=== PATIENT | male | born 1995 | race Hispanic/Latino ===

== ENCOUNTER 2017-08-14 02:02 | Emergency (ER) | payer OTHER ==
[2017-08-14 02:47] LABS: Urine Drugs of Abuse Note Disclamer
[2017-08-14 02:52] LABS: Basophils % (Auto) 0.8 % (0.0-1.8); Eosinophils % (Auto) 0.3 % (0.0-4.3); Hematocrit 48.9 % (35.5-45.6); Hemoglobin 16.8 gm/dl (11.8-15.2); Mean Corpuscular HGB Conc 35 % (32-34); Mean Corpuscular Hemoglobin 31 pg (28-32); Mean Corpuscular Volume 91 fl (84-94); Platelet Count 289 K/mm3 (140-440); Red Cell Distribution Width 13.1 % (13.2-15.2); White Blood Count 5.1 K/mm3 (4.5-11.0)
[2017-08-14 03:07] LABS: Anion Gap 22 mmol/L; BUN/Creatinine Ratio 10; Blood Urea Nitrogen 8 mg/dL (9-20); Calcium 9.9 mg/dL (8.4-10.2); Carbon Dioxide 22 mmol/L (22-30); Chloride 95.5 mmol/L (98-107); Glucose 172 mg/dL (75-100); Potassium 3.9 mmol/L (3.6-5.0); Sodium 136 mmol/L (137-145)
[2017-08-14 03:09] LABS: Bilirubin,Urine NEG (Negative); Blood,Urine NEG (Negative); Ketones,Urine NEG (Negative); Leukocyte Esterase,Urine NEG (Negative); Mucus,Urine 3+ /HPF; Nitrite,Urine NEG (Negative)
[2017-08-14] MEDS ORDERED: NACL 0.9% 1000 ML 1,000 ML IV ONE ×2 (03:11→05:16)
[2017-08-14] MEDS ORDERED: ATIVAN IV ONE ×2 (03:11→05:16)
--- NOTE | 2017-08-14 03:49 | XRay Report ---
FINAL REPORT EXAM: XR CHEST 1V AP HISTORY: chest pain TECHNIQUE: An AP view of the chest was submitted. FINDINGS: The heart size and mediastinum appear normal. The lungs are clear. There are EKG leads overlying the chest wall. Pleural fluid is not seen. The bones and soft tissues appear normal. IMPRESSION: Normal chest.
--- NOTE | 2017-08-14 05:22 | Emergency Department Report ---
ED Chest Pain HPI - General Chief Complaint: Chest Pain Stated Complaint: HEART HURTS Time Seen by Provider: 08/14/17 03:09 Source: patient Mode of arrival: Ambulatory Limitations: No Limitations - History of Present Illness Initial Comments: 22 yo male who comes in today due to chest pain. He states that he used meth on one occasion prior to arrival. Upon further inquiry, he admits to using weed and meth in the past. Chest pain described as left-sided, aching, 8/10, with no radiation, nausea, vomiting, or diaphoresis. Denies any pertinent past medical history. -: During the night (prior to arrival ) Pain Location: left chest Pain Radiation: none Severity scale (0 -10): 7 Quality: aching, sharp Improves With: nothing Worsens With: movement Context: other (Recent drug use ) Treatments Prior to Arrival: none Aspirin use within the Past 7 Days: (0) No - Related Data On Oral Contraceptives: No Home Medications Medication Instructions Recorded Confirmed Last Taken No Known Home Medications [No 08/14/17 08/14/17 Unknown Reported Home Medications] Allergies Allergy/AdvReac Type Severity Reaction Status Date / Time No Known Allergies Allergy Unverified 08/14/17 02:25 Heart Score - HEART Score History: Slightly suspicious EKG: Non-specific (sinus tachycardia-133) Age: < 45 Risk factors: No known risk factors Troponin: < normal limit HEART Score: 1 ED Review of Systems ROS: Stated complaint: HEART HURTS Other details as noted in HPI Constitutional: denies: chills, fever Eyes: denies: eye pain, eye discharge, vision change ENT: denies: ear pain, throat pain Respiratory: denies: cough, shortness of breath, wheezing Cardiovascular: as per HPI Endocrine: no symptoms reported Gastrointestinal: denies: abdominal pain, nausea, diarrhea Genitourinary: denies: urgency, dysuria Musculoskeletal: denies: back pain, joint swelling, arthralgia Skin: denies: rash, lesions Neurological: denies: headache, weakness, paresthesias Psychiatric: denies: anxiety, depression Hematological/Lymphatic: denies: easy bleeding, easy bruising ED Past Medical Hx - Past Medical History Previous Medical History?: No - Surgical History Past Surgical History?: No - Social History Smoking Status: Current Every Day Smoker Substance Use Type: Cocaine, Methamphetamines - Medications Home Medications: Home Medications Medication Instructions Recorded Confirmed Last Taken Type No Known Home Medications [No 08/14/17 08/14/17 Unknown History Reported Home Medications] ED Physical Exam - General Limitations: No Limitations General appearance: alert, in no apparent distress, anxious - Head Head exam: Present: atraumatic, normocephalic - Eye Eye exam: Present: normal appearance - ENT ENT exam: Present: mucous membranes moist - Neck Neck exam: Present: normal inspection - Respiratory Respiratory exam: Present: normal lung sounds bilaterally. Absent: respiratory distress - Cardiovascular Cardiovascular Exam: Present: tachycardia - GI/Abdominal GI/Abdominal exam: Present: soft, normal bowel sounds - Extremities Exam Extremities exam: Present: normal inspection - Back Exam Back exam: Present: normal inspection - Neurological Exam Neurological exam: Present: alert, oriented X3 - Psychiatric Psychiatric exam: Present: anxious - Skin Skin exam: Present: warm, dry, intact, normal color. Absent: rash ED Course Vital Signs 08/14/17 08/14/17 08/14/17 02:19 02:42 02:45 Temperature 98 F Pulse Rate 133 H 122 H 135 H Respiratory 20 13 12 Rate Blood Pressure 150/81 O2 Sat by Pulse 100 100 100 Oximetry 08/14/17 08/14/17 08/14/17 02:46 03:00 03:15 Temperature Pulse Rate 114 H 124 H Respiratory 14 10 L 11 L Rate Blood Pressure 146/94 146/94 O2 Sat by Pulse 100 100 100 Oximetry 08/14/17 08/14/17 08/14/17 03:30 03:45 04:00 Temperature Pulse Rate 162 H 115 H 116 H Respiratory 12 12 13 Rate Blood Pressure 148/88 148/88 137/91 O2 Sat by Pulse 99 100 100 Oximetry 08/14/17 08/14/17 08/14/17 04:15 04:30 04:45 Temperature Pulse Rate 124 H 123 H 129 H Respiratory 12 13 8 L Rate Blood Pressure 137/91 138/82 138/82 O2 Sat by Pulse 100 100 100 Oximetry 08/14/17 05:00 Temperature Pulse Rate 125 H Respiratory 9 L Rate Blood Pressure 127/82 O2 Sat by Pulse 100 Oximetry INDIO score - Indio Score Age > 65: (0) No Aspirin use within the Past 7 Days: (0) No 3 or more CAD Risk Factors: (0) No 2 or more Angina events in past 24 hrs: (0) No Known CAD with more than 50% Stenosis: (0) No Elevated Cardiac Markers: (0) No ST Deviation Greater than 0.5mm: (0) No INDIO Score: 0 ED Medical Decision Making - Lab Data Result diagrams: 08/14/17 02:32 08/14/17 02:32 Critical care attestation.: If time is entered above; I have spent that time in minutes in the direct care of this critically ill patient, excluding procedure time. ED Disposition Clinical Impression: Drug use, Methamphetamine use Disposition: DC- TO HOME OR SELFCARE Is pt being admited?: No Does the pt Need Aspirin: No Condition: Stable Instructions: Methamphetamine Abuse (ED), Chest Pain (ED) Additional Instructions: Please refrain from the use of recreational drugs. Return to the ED for worsening chest pain, shortness of breath, diaphoresis, nausea, vomiting, or back pain. Referrals: PRIMARY CARE, [Primary Care Provider] - 3-5 Days Time of Disposition: 05:26
[2017-08-14 06:43] VITALS: BP 134/86
== END 2017-08-14 06:43 | disposition home or self-care (01) ==
LOC: ED 02:02
DX: F15.90 Other stimulant use, unspecified, uncomplicated (principal); F17.200 Nicotine dependence, unspecified, uncomplicated; F14.10 Cocaine abuse, uncomplicated
CPT/HCPCS: 36415; 71010; 80048; 80307; 81001; 84484; 85025; 93005; 93010; 96361; 96374; 96376; 99284; G0480; J2060; J7030; 80320

== ENCOUNTER 2017-08-15 04:01 | Emergency (ER) | payer SELFPAY ==
[2017-08-15 05:32] VITALS: BP 121/85
[2017-08-15 06:19] LABS: Basophils % (Auto) 0.5 % (0.0-1.8); Eosinophils % (Auto) 0.4 % (0.0-4.3); Hematocrit 48.7 % (35.5-45.6); Hemoglobin 16.3 gm/dl (11.8-15.2); Mean Corpuscular HGB Conc 34 % (32-34); Mean Corpuscular Hemoglobin 31 pg (28-32); Mean Corpuscular Volume 91 fl (84-94); Platelet Count 278 K/mm3 (140-440); Red Blood Count 5.34 M/mm3 (3.65-5.03); Red Cell Distribution Width 13.1 % (13.2-15.2); White Blood Count 5.5 K/mm3 (4.5-11.0)
[2017-08-15 06:58] LABS: Anion Gap 21 mmol/L; BUN/Creatinine Ratio 12; Blood Urea Nitrogen 6 mg/dL (9-20); Calcium 9.4 mg/dL (8.4-10.2); Carbon Dioxide 22 mmol/L (22-30); Chloride 101.5 mmol/L (98-107); Glucose 87 mg/dL (75-100); Potassium 4.2 mmol/L (3.6-5.0); Sodium 140 mmol/L (137-145)
== END 2017-08-15 11:00 | disposition left against medical advice (07) ==
LOC: ED 04:01
DX: R07.89 Other chest pain (principal); Z53.21 Procedure and treatment not carried out due to patient leaving prior to being seen by health care provider
CPT/HCPCS: 36415; 80048; 84484; 85025; 93005; 93010

== ENCOUNTER 2017-08-16 05:01 | Emergency (ER) | payer OTHER ==
[2017-08-16 06:15] VITALS: BP 127/82
[2017-08-16 11:36] LABS: Basophils % (Auto) 1.4 % (0.0-1.8); Eosinophils % (Auto) 0.9 % (0.0-4.3); Hematocrit 48.2 % (35.5-45.6); Hemoglobin 16.1 gm/dl (11.8-15.2); Mean Corpuscular HGB Conc 33 % (32-34); Mean Corpuscular Hemoglobin 30 pg (28-32); Mean Corpuscular Volume 91 fl (84-94); Platelet Count 282 K/mm3 (140-440); Red Cell Distribution Width 13.1 % (13.2-15.2); White Blood Count 4.8 K/mm3 (4.5-11.0)
[2017-08-16 11:54] LABS: Anion Gap 19 mmol/L; BUN/Creatinine Ratio 16; Blood Urea Nitrogen 8 mg/dL (9-20); Calcium 9.1 mg/dL (8.4-10.2); Carbon Dioxide 25 mmol/L (22-30); Chloride 99.4 mmol/L (98-107); Glucose 96 mg/dL (75-100); Potassium 3.7 mmol/L (3.6-5.0); Sodium 140 mmol/L (137-145)
[2017-08-16 11:56] LABS: Creatine Kinase MB 1.1 ng/mL (0.0-4.0)
== END 2017-08-16 13:35 | disposition left against medical advice (07) ==
LOC: ED 05:01
DX: R07.9 Chest pain, unspecified (principal); Z53.21 Procedure and treatment not carried out due to patient leaving prior to being seen by health care provider
CPT/HCPCS: 36415; 80048; 82550; 82553; 84439; 84443; 84484; 85025; 85379; 93005; 93010; G0480; 80320

== ENCOUNTER 2017-08-24 07:15 | Emergency (ER) | payer SELFPAY ==
[2017-08-24 08:40] VITALS: BP 117/71
[2017-08-24] MEDS ORDERED: TYLENOL PO ONE (09:07)
[2017-08-24] MEDS ORDERED: TORADOL IM ONE (09:07)
--- NOTE | 2017-08-24 09:08 | Emergency Department Report ---
ED Chest Pain HPI - General Chief Complaint: Chest Pain Stated Complaint: CHEST PAIN Time Seen by Provider: 08/24/17 08:59 Source: patient, RN notes reviewed, old records reviewed Mode of arrival: Ambulatory Limitations: No Limitations - History of Present Illness Initial Comments: This is a 22-year-old male who was previously unknown to this provider. Patient presents to the ER with left-sided chest pain. It is intermittently associated with left scapular pain. The pain has been present for about a week. It is intermittent. The pain does not radiate to the back, arms or neck. There is no vomiting, diaphoresis, shortness of breath or syncope. Patient reports symptoms started after he smoked an unknown drug. He is not homicidal or suicidal, he is not having hallucinations, he is very anxious, her pulmonary and blister DVT risk factors. Patient seen in this ER multiple times for similar complaints over the past week, troponins have been negative multiple times, patient had a negative d-dimer, and also had a negative x-ray the chest. The patient's symptoms do not have exacerbating or relieving factors, and do not radiate anywhere. MD Complaint: chest pain -: Gradual, days(s) Onset: during rest Pain Location: left chest Severity scale (0 -10): 0 Quality: aching Consistency: intermittent Improves With: nothing Worsens With: nothing re: denies: nausea, vomting, diaphoresis, dyspnea, sense of impending doom Treatments Prior to Arrival: none Aspirin use within the Past 7 Days: (0) No - Related Data On Oral Contraceptives: No Previous Rx's Medication Instructions Recorded Last Taken Type Acetaminophen [Tylenol Arthritis] 650 mg PO Q6HR PRN #30 tablet.er 08/24/17 Unknown Rx Ibuprofen [Motrin] 600 mg PO Q8H PRN #30 tablet 08/24/17 Unknown Rx Allergies Allergy/AdvReac Type Severity Reaction Status Date / Time No Known Allergies Allergy Verified 08/24/17 07:24 Heart Score - HEART Score History: Slightly suspicious EKG: Non-specific Age: < 45 Risk factors: No known risk factors Troponin: < normal limit HEART Score: 1 - Critical Actions Critical Actions: 0-3 pts:0.9-1.7%risk of adverse cardiac event.Candidate for discharge ED Review of Systems ROS: Stated complaint: CHEST PAIN Other details as noted in HPI Constitutional: denies: fever Eyes: denies: vision change ENT: denies: epistaxis Respiratory: denies: wheezing Cardiovascular: chest pain Gastrointestinal: denies: vomiting Genitourinary: as per HPI Musculoskeletal: as per HPI Skin: as per HPI Neurological: as per HPI Psychiatric: anxiety. denies: suicidal thoughts ED Past Medical Hx - Past Medical History Previous Medical History?: No - Surgical History Past Surgical History?: No - Social History Smoking Status: Current Some Day Smoker Substance Use Type: Alcohol - Medications Home Medications: Home Medications Medication Instructions Recorded Confirmed Last Taken Type Acetaminophen [Tylenol Arthritis] 650 mg PO Q6HR PRN #30 tablet.er 08/24/17 Unknown Rx Ibuprofen [Motrin] 600 mg PO Q8H PRN #30 tablet 08/24/17 Unknown Rx ED Physical Exam - General Limitations: No Limitations General appearance: alert, in no apparent distress - Head Head exam: Present: atraumatic, normocephalic - Eye Eye exam: Present: normal appearance, EOMI. Absent: nystagmus - ENT ENT exam: Present: normal exam, normal orophraynx, mucous membranes moist, normal external ear exam - Neck Neck exam: Present: normal inspection, full ROM - Respiratory Respiratory exam: Present: normal lung sounds bilaterally. Absent: respiratory distress, chest wall tenderness - Cardiovascular Cardiovascular Exam: Present: regular rate, normal rhythm, normal heart sounds. Absent: systolic murmur, diastolic murmur, rubs, gallop - GI/Abdominal GI/Abdominal exam: Present: soft, normal bowel sounds. Absent: distended, tenderness, guarding, rebound, rigid, pulsatile mass - Rectal Rectal exam: Present: deferred - Extremities Exam Extremities exam: Present: normal inspection, full ROM, normal capillary refill. Absent: pedal edema, joint swelling, calf tenderness - Back Exam Back exam: Present: normal inspection, full ROM. Absent: tenderness, CVA tenderness (R), paraspinal tenderness, vertebral tenderness - Neurological Exam Neurological exam: Present: alert, oriented X3, CN II-XII intact, normal gait, other (Extraocular movements intact. Tongue midline. No facial droop. Facial sensation intact to light touch in the V1, V2, V3 distribution bilaterally. 5 and 5 strength in 4 extremities.. Sensation is intact to light touch in 4 extremities.). Absent: motor sensory deficit - Psychiatric Psychiatric exam: Present: anxious - Skin Skin exam: Present: warm, dry, intact, normal color. Absent: rash ED Course Vital Signs 08/24/17 08/24/17 08/24/17 07:24 08:39 08:40 Temperature 98 F 98.4 F Pulse Rate 86 75 Respiratory 18 12 12 Rate Blood Pressure 121/77 Blood Pressure 117/71 [Right] O2 Sat by Pulse 96 98 98 Oximetry INDIO score - Indio Score Age > 65: (0) No Aspirin use within the Past 7 Days: (0) No 3 or more CAD Risk Factors: (0) No 2 or more Angina events in past 24 hrs: (0) No Known CAD with more than 50% Stenosis: (0) No Elevated Cardiac Markers: (0) No ST Deviation Greater than 0.5mm: (0) No INDIO Score: 0 ED Medical Decision Making - Lab Data Result diagrams: 08/24/17 09:11 Vital Signs 08/24/17 08/24/17 08/24/17 07:24 08:39 08:40 Temperature 98 F 98.4 F Pulse Rate 86 75 Respiratory 18 12 12 Rate Blood Pressure 121/77 Blood Pressure 117/71 [Right] O2 Sat by Pulse 96 98 98 Oximetry - EKG Data -: EKG Interpreted by Ga - EKG Data 08/24/17 09:42 Normal sinus, 75 bpm, right axis deviation, left anterior fascicular block, abnormal EKG, unchanged from prior, not morphologically consistent with ST elevation myocardial infarction, - Radiology Data Radiology results: report reviewed, image reviewed Recent x-ray of the chest, read by radiology and myself as negative for acute disease - Medical Decision Making Differential diagnosis, including without limited to: Acute coronary syndrome, pneumonia, costochondritis, anxiety, conversion disorder, myositis, pericarditis Assessment and plan: 22-year-old male with atypical chest pain that has been present for 1 week, has had multiple negative troponins, negative d-dimer, EKG abnormal today but morphologically unchanged from prior, recent x-ray of the chest was interpreted as negative. Historically, patient low risk by INDIO score , heart score, Wells criteria, and is per negative Patient given Toradol and Tylenol for pain, he was sleeping initially during my initial evaluation and is sleeping now. Patient is clinically sober at this time, he is advised to avoid consumption of illegal drugs, patient at low risk for major adverse cardiac event, and he can follow up with an outpatient neurologist for his incidental abnormal EKG findings. Given recent negative chest x-ray, lack of hypoxia, lack of focal pulmonary findings, I see no indication to repeat patient's x-ray of the chest at this time. Critical care attestation.: If time is entered above; I have spent that time in minutes in the direct care of this critically ill patient, excluding procedure time. ED Disposition Clinical Impression: Chest pain Disposition: DC-01 TO HOME OR SELFCARE Is pt being admited?: No Does the pt Need Aspirin: No Condition: Good Instructions: Chest Pain (ED) Additional Instructions: Discontinue consumption of amphetamines, marijuana, illegal drugs. Discontinue consumption of trauma and all. This medication is not necessary at this time. Take the prescribed acetaminophen and ibuprofen as needed/directed. Follow up with a neurologist within the next 7-10 days for chest pain and abnormal EKG findings as we discussed. Return to the ER right away with new pain, worsening pain, migration of pain, fevers, chills, lethargy, irritability, projectile vomiting, change in mental status, confusion, inability to tolerate liquid feeds. Prescriptions: Acetaminophen [Tylenol Arthritis] 650 mg PO Q6HR PRN #30 tablet.er PRN Reason: Pain Ibuprofen [Motrin] 600 mg PO Q8H PRN #30 tablet PRN Reason: Pain Referrals: PRIMARY CARE, [Primary Care Provider] - 3-5 Days [facility] [Provider Group] - 3-5 Days [facility] [Provider Group] - 3-5 Days
[2017-08-24 09:53] LABS: Anion Gap 18 mmol/L; BUN/Creatinine Ratio 12; Blood Urea Nitrogen 7 mg/dL (9-20); Calcium 9.3 mg/dL (8.4-10.2); Carbon Dioxide 26 mmol/L (22-30); Chloride 99.1 mmol/L (98-107); Creatine Kinase 44 units/L (55-170); Glucose 111 mg/dL (75-100); Potassium 3.8 mmol/L (3.6-5.0); Sodium 139 mmol/L (137-145)
== END 2017-08-24 10:30 | disposition home or self-care (01) ==
LOC: ED 07:15
DX: R07.89 Other chest pain (principal); F17.200 Nicotine dependence, unspecified, uncomplicated
CPT/HCPCS: 36415; 80048; 82550; 84484; 93005; 93010; 96372; 99283; J1885

== ENCOUNTER 2017-08-25 16:59 | Emergency (ER) | payer OTHER ==
[2017-08-25 17:58] LABS: Basophils % (Auto) 0.5 % (0.0-1.8); Eosinophils % (Auto) 0.4 % (0.0-4.3); Hematocrit 47.2 % (35.5-45.6); Hemoglobin 15.8 gm/dl (11.8-15.2); Mean Corpuscular HGB Conc 33 % (32-34); Mean Corpuscular Hemoglobin 31 pg (28-32); Mean Corpuscular Volume 91 fl (84-94); Platelet Count 288 K/mm3 (140-440); Red Blood Count 5.18 M/mm3 (3.65-5.03); Red Cell Distribution Width 13.3 % (13.2-15.2); White Blood Count 8.5 K/mm3 (4.5-11.0)
[2017-08-25 18:27] LABS: Anion Gap 17 mmol/L; BUN/Creatinine Ratio 17; Blood Urea Nitrogen 10 mg/dL (9-20); Calcium 9.3 mg/dL (8.4-10.2); Carbon Dioxide 28 mmol/L (22-30); Chloride 98.7 mmol/L (98-107); Glucose 99 mg/dL (75-100); Potassium 3.7 mmol/L (3.6-5.0); Sodium 140 mmol/L (137-145)
[2017-08-26 00:08] LABS: Urine Drugs of Abuse Note Disclamer
--- NOTE | 2017-08-26 00:18 | Emergency Department Report ---
HPI - General Chief Complaint: Chest Pain Time Seen by Provider: 08/25/17 23:39 - HPI HPI: Room 19 The patient is a 22-year-old male presenting with a chief complaint dizziness and chest pain. The patient states he smoked some methamphetamines approximately 9 days ago and since then has had intermittent left-sided chest pain described as sharp in nature. Patient denies shortness of breath or diaphoresis but this to an episode of nausea and vomiting after eating yesterday. Patient is adamant he has not used any more meth since his first use 9 days ago. The patient currently has his pain score 6-7/10 Location: Chest Duration: Intermittent 9 days Quality: Sharp Severity: [See above] Modifying factors: [see above] Context: [see above] Mode of transportation: [not driving] ED Past Medical Hx - Past Medical History Previous Medical History?: No - Surgical History Past Surgical History?: No - Family History Family history: no significant - Social History Smoking Status: Current Some Day Smoker Substance Use Type: Alcohol (occasional), Methamphetamines - Medications Home Medications: Home Medications Medication Instructions Recorded Confirmed Last Taken Type Acetaminophen [Tylenol Arthritis] 650 mg PO Q6HR PRN #30 tablet.er 08/24/17 Unknown Rx Ibuprofen [Motrin] 600 mg PO Q8H PRN #30 tablet 08/24/17 Unknown Rx Ibuprofen [Motrin 800 MG tab] 800 mg PO Q8HR PRN #20 tablet 08/26/17 Unknown Rx ED Review of Systems ROS: Stated complaint: CHEST PAIN Other details as noted in HPI Constitutional: denies: diaphoresis Eyes: denies: eye pain ENT: denies: throat pain Respiratory: denies: shortness of breath Cardiovascular: chest pain Gastrointestinal: nausea, vomiting. denies: abdominal pain Genitourinary: denies: dysuria Musculoskeletal: denies: back pain Neurological: denies: headache Physical Exam - Physical Exam Vital Signs: Vital Signs 08/25/17 08/25/17 08/25/17 17:10 23:32 23:45 Temperature 98.3 F Pulse Rate 84 91 H Respiratory 16 9 L 19 Rate Blood Pressure 108/70 128/83 O2 Sat by Pulse 96 99 Oximetry 08/25/17 23:49 Temperature 98.4 F Pulse Rate 83 Respiratory 19 Rate Blood Pressure O2 Sat by Pulse 100 Oximetry Physical Exam: GENERAL: The patient is well-developed well-nourished male lying on stretcher not appearing to be in acute distress. [] HEENT: Normocephalic. Atraumatic. Extraocular motions are intact. Patient has moist mucous membranes. NECK: Supple. Trachea midline CHEST/LUNGS: Clear to auscultation. There is no respiratory distress noted. HEART/CARDIOVASCULAR: Regular. There is no tachycardia. There is no gallop rub or murmur. ABDOMEN: Abdomen is soft, nontender. Patient has normal bowel sounds. There is no abdominal distention. SKIN: There is no rash. There is no edema. There is no diaphoresis. NEURO: The patient is awake, alert, and oriented. The patient is cooperative. The patient has no focal neurologic deficits. The patient has normal speech. Cranial nerves II through XII grossly intact, no drift MUSCULOSKELETAL: nge of motion. There is no evidence of acute injury. ED Course Vital Signs 08/25/17 08/25/17 08/25/17 17:10 23:32 23:45 Temperature 98.3 F Pulse Rate 84 91 H Respiratory 16 9 L 19 Rate Blood Pressure 108/70 128/83 O2 Sat by Pulse 96 99 Oximetry 08/25/17 23:49 Temperature 98.4 F Pulse Rate 83 Respiratory 19 Rate Blood Pressure O2 Sat by Pulse 100 Oximetry ED Medical Decision Making - Lab Data Result diagrams: 08/25/17 17:27 08/25/17 17:27 Laboratory Tests 08/25/17 08/25/17 08/25/17 17:27 17:27 20:02 WBC 8.5 RBC 5.18 H Hgb 15.8 H Hct 47.2 H MCV 91 MCH 31 MCHC 33 RDW 13.3 Plt Count 288 Lymph % (Auto) 13.5 [place] % (Auto) 6.2 Eos % (Auto) 0.4 Baso % (Auto) 0.5 Lymph # 1.1 L [place] # 0.5 Eos # 0.0 Baso # 0.0 Seg Neutrophils % 79.4 H Seg Neutrophils # 6.7 D-Dimer Sodium 140 Potassium 3.7 Chloride 98.7 Carbon Dioxide 28 Anion Gap 17 BUN 10 Creatinine 0.6 L Estimated GFR > 60 BUN/Creatinine Ratio 17 Glucose 99 Calcium 9.3 Troponin T < 0.010 < 0.010 Urine Opiates Screen Urine Methadone Screen Ur Barbiturates Screen Ur Phencyclidine Scrn Ur Amphetamines Screen U Benzodiazepines Scrn Urine Cocaine Screen U Marijuana (THC) Screen Drugs of Abuse Note 08/25/17 08/25/17 08/26/17 23:20 Unknown 00:13 WBC RBC Hgb Hct MCV MCH MCHC RDW Plt Count Lymph % (Auto) [place] % (Auto) Eos % (Auto) Baso % (Auto) Lymph # [place] # Eos # Baso # Seg Neutrophils % Seg Neutrophils # D-Dimer < 135 Sodium Potassium Chloride Carbon Dioxide Anion Gap BUN Creatinine Estimated GFR BUN/Creatinine Ratio Glucose Calcium Troponin T < 0.010 Urine Opiates Screen Presumptive negative Urine Methadone Screen Presumptive negative Ur Barbiturates Screen Presumptive negative Ur Phencyclidine Scrn Presumptive negative Ur Amphetamines Screen Presumptive negative U Benzodiazepines Scrn Presumptive negative Urine Cocaine Screen Presumptive negative U Marijuana (THC) Screen Presumptive negative Drugs of Abuse Note Disclamer - EKG Data -: EKG Interpreted by Me EKG shows normal: sinus rhythm Rate: normal - EKG Data When compared to previous EKG there are: no significant change Interpretation: unchanged when compared t (08/24/2017) - Radiology Data Radiology results: image reviewed (chest x-ray) interpreted by me: Chest x-ray-no focal infiltrates, no pneumothorax - Differential Diagnosis Prinzmetal's angina, pneumothorax, ACS, PE Critical care attestation.: If time is entered above; I have spent that time in minutes in the direct care of this critically ill patient, excluding procedure time. ED Disposition Clinical Impression: Methamphetamine use, Chest pain Disposition: DC-01 TO HOME OR SELFCARE Is pt being admited?: No Does the pt Need Aspirin: No Condition: Stable Instructions: Chest Pain (ED) Additional Instructions: Return to the emergency department immediately should you develop worsening symptoms, fever, inability to tolerate food or liquid or any other concerns. Prescriptions: Ibuprofen [Motrin 800 MG tab] 800 mg PO Q8HR PRN #20 tablet PRN Reason: Pain [facility] [Outside] - 3-5 Days MURIEL HUNTER MD [Staff Physician] - 3-5 Days Time of Disposition: 01:28
[2017-08-26 01:28] VITALS: BP 119/81
--- NOTE | 2017-08-26 01:29 | XRay Report ---
FINAL REPORT EXAM: XR CHEST ROUTINE 2V HISTORY: chest pain COMPARISON: August 14, 2017. FINDINGS:: Frontal and lateral views of the chest obtained. Cardiac silhouette is within normal limits. No focal consolidation or effusion. No pneumothorax. Visualized bony thorax is grossly intact. IMPRESSION:: No acute findings.
== END 2017-08-26 01:40 | disposition home or self-care (01) ==
LOC: ED 16:59
DX: F15.10 Other stimulant abuse, uncomplicated (principal); R07.89 Other chest pain; F17.200 Nicotine dependence, unspecified, uncomplicated; Z79.899 Other long term (current) drug therapy
CPT/HCPCS: 36415; 71020; 80048; 80307; 84484; 85025; 85379; 93005; 93010

== ENCOUNTER 2017-08-27 13:52 | Emergency (ER) | payer OTHER ==
[2017-08-27] MEDS ORDERED: TYLENOL ONE (20:01)
[2017-08-27] MEDS ORDERED: TYLENOL PO ONE (20:02)
[2017-08-28 02:08] VITALS: BP 113/57
[2017-08-28] MEDS ORDERED: PEPCID PO ONE (03:29)
[2017-08-28] MEDS ORDERED: MOTRIN PO ONE (03:29)
--- NOTE | 2017-08-28 03:46 | Emergency Department Report ---
ED Chest Pain HPI - General Chief Complaint: Chest Pain Stated Complaint: LEFT ARM PAIN Time Seen by Provider: 08/28/17 02:54 Source: patient Mode of arrival: Ambulatory Limitations: No Limitations - History of Present Illness Initial Comments: 22-year-old male with a past medical history of drug abuse presents to the hospital complaining of pain under his left arm. Patient has had intermittent chest pain 2 weeks. Patient has had multiple visits to the ED this month for the same. He has been seen 3 times by physicians since August 14 with last visit on the . During his visits he has had a positive UDS for amphetamine and THC on Aug 14 but then negative on the . Patient has prescribed Motrin and Tylenol for pain. Patient returns here complaining of intermittent sharp pain with spasms that started his left chest radiating to his left arm. Also palpation and movement. No complaints of shortness of breath. Occasional burning epigastric and left-sided chest pain reported. Severity scale (0 -10): 8 - Related Data Previous Rx's Medication Instructions Recorded Last Taken Type Acetaminophen [Tylenol Arthritis] 650 mg PO Q6HR PRN #30 tablet.er 08/24/17 Unknown Rx Ibuprofen [Motrin] 600 mg PO Q8H PRN #30 tablet 08/24/17 Unknown Rx Ibuprofen [Motrin 800 MG tab] 800 mg PO Q8HR PRN #20 tablet 08/26/17 Unknown Rx Famotidine [Pepcid] 20 mg PO BID #60 tablet 08/28/17 Unknown Rx hydrOXYzine PAMOATE [Vistaril] 50 mg PO Q6HR PRN #20 capsule 08/28/17 Unknown Rx Allergies Allergy/AdvReac Type Severity Reaction Status Date / Time No Known Allergies Allergy Verified 08/27/17 14:12 Heart Score - HEART Score History: Slightly suspicious EKG: Normal Age: < 45 Risk factors: No known risk factors Troponin: < normal limit HEART Score: 0 ED Review of Systems ROS: Stated complaint: LEFT ARM PAIN Other details as noted in HPI Comment: All other systems reviewed and negative Other: Constitutional: No fevers chills Eyes: No eye pain visual changes ENT: No ear pain or throat pain Neck: Denies pain Respiratory: Denies cough wheezing shortness of breath Cardiovascular: Denies palpitations, syncope GI: Denies abdominal pain, nausea, vomiting, diarrhea : Denies dysuria Musculoskeletal: Denies back pain, joint swelling Skin: Denies rash, lesions, erythema Neurologic: Denies headache, numbness, weakness Psychiatric: Denies suicidal ideation, hallucinations ED Past Medical Hx - Social History Smoking Status: Never Smoker Substance Use Type: None - Medications Home Medications: Home Medications Medication Instructions Recorded Confirmed Last Taken Type Acetaminophen [Tylenol Arthritis] 650 mg PO Q6HR PRN #30 tablet.er 08/24/17 Unknown Rx Ibuprofen [Motrin] 600 mg PO Q8H PRN #30 tablet 08/24/17 Unknown Rx Ibuprofen [Motrin 800 MG tab] 800 mg PO Q8HR PRN #20 tablet 08/26/17 Unknown Rx Famotidine [Pepcid] 20 mg PO BID #60 tablet 08/28/17 Unknown Rx hydrOXYzine PAMOATE [Vistaril] 50 mg PO Q6HR PRN #20 capsule 08/28/17 Unknown Rx ED Physical Exam - General Limitations: No Limitations - Other Other exam information: General: No limitations, patient is alert in no acute distress Head exam: Atraumatic, normocephalic Eyes exam: Normal appearance, pupils equal reactive to light, extraocular movements intact ENT: Moist mucous membrane, normal oropharynx Neck exam: Normal inspection, full range of motion, no meningismus nontender Respiratory exam: Clear to auscultation bilateral, no wheezes, rales, crackles Cardiovascular: Normal rate and rhythm, reproducible left-sided chest wall tenderness and tenderness to the left lateral chest wall under the axilla.. arnel or edema Abdomen: Soft, nondistended, and nontender, with normal bowel sounds, no rebound, or guarding Extremity: Full range of motion normal inspection no deformity Back: Normal Inspection, full range of motion, no tenderness Neurologic: Alert, oriented x3, cranial nerves intact, no motor or sensory deficit Psychiatric: normal affect, normal mood Skin: Warm, dry, intact ED Course Vital Signs 08/27/17 08/27/17 08/27/17 14:12 20:01 22:30 Temperature 98.2 F 98.6 F Pulse Rate 79 90 Respiratory 16 20 18 Rate Blood Pressure 120/83 Blood Pressure 121/79 [Left] O2 Sat by Pulse 98 97 Oximetry 08/28/17 08/28/17 00:56 02:07 Temperature 98.6 F 98 F Pulse Rate 82 98 H Respiratory 18 Rate Blood Pressure 128/88 Blood Pressure 113/57 [Left] O2 Sat by Pulse 99 Oximetry - Reevaluation(s) Reevaluation #1: 08/28/17 03:52 Patient vital signs within normal limits. Patient given Motrin for pain in addition to the Tylenol he previously received. EKG pending PHANI score - Phani Score Age > 65: (0) No Aspirin use within the Past 7 Days: (0) No 3 or more CAD Risk Factors: (0) No 2 or more Angina events in past 24 hrs: (0) No Known CAD with more than 50% Stenosis: (0) No Elevated Cardiac Markers: (0) No ST Deviation Greater than 0.5mm: (0) No PHANI Score: 0 ED Medical Decision Making - EKG Data -: EKG Interpreted by Me ([place]) EKG shows normal: sinus rhythm, axis (252), QRS complexes (82), ST-T waves (no stemi) Rate: normal (72) - EKG Data When compared to previous EKG there are: no significant change - Medical Decision Making Patient has visited the ER repeatedly for similar complaints. Clinically his chest pain appears to be musculoskeletal. Patient also states he gets scared at night and can't sleep. Patient may have some underlying anxiety. Patient also has history of substance abuse with recent amphetamine use. Patient denies recent drug use. Repeat EKG unremarkable. Patient does not have any significant cardiac risk factors. Recent d-dimer performed this month were negative 2. Recent chest x-rays performed 2 this month also negative. Patient will be treated symptomatically for pain and to continue his prescribed Motrin and to follow-up with the primary care doctor. I do not feel comfortable providing any medication that can be abused at this time given history of drug abuse. Patient will be prescribed an H2 brianna to help with intermittent epigastric burning sensation - Differential Diagnosis costochondritis, muscular skeletal chest pain, [place], PE, Critical Care Time: No Critical care attestation.: If time is entered above; I have spent that time in minutes in the direct care of this critically ill patient, excluding procedure time. ED Disposition Clinical Impression: Musculoskeletal chest pain, History of methamphetamine abuse, Anxiety Disposition: DC-01 TO HOME OR SELFCARE Is pt being admited?: No Does the pt Need Aspirin: No Condition: Stable Instructions: Thoracic Pain (ED), Anxiety (ED), Methamphetamine Abuse (ED) Additional Instructions: Continue prescribed Motrin for pain. Take Pepcid to help with stomach burning and Vistaril to help with anxiety and trouble sleeping. Follow up with the primary care clinic and mental health clinic provided. Prescriptions: Famotidine [Pepcid] 20 mg PO BID #60 tablet hydrOXYzine PAMOATE [Vistaril] 50 mg PO Q6HR PRN #20 capsule PRN Reason: Anxiety Referrals: [facility] [Provider Group] - 3-5 Days [facility] [Outside] - 3-5 Days Time of Disposition: 04:01
== END 2017-08-28 04:47 | disposition home or self-care (01) ==
LOC: ED 13:52
DX: R07.9 Chest pain, unspecified (principal); F15.10 Other stimulant abuse, uncomplicated; F41.9 Anxiety disorder, unspecified
CPT/HCPCS: 93005; 93010; 99282

== ENCOUNTER 2017-09-09 09:21 | Emergency (ER) | payer SELFPAY | END 2017-09-09 12:14 | disposition left against medical advice (07) | LOC: ED 09:21 | DX: J11.1 Influenza due to unidentified influenza virus with other respiratory manifestations (principal); Z53.21 Procedure and treatment not carried out due to patient leaving prior to being seen by health care provider ==

== ENCOUNTER 2021-12-26 23:24 | Emergency (ER) | payer SELFPAY ==
[2021-12-27] MEDS ORDERED: PANTOPRAZOLE 40 MG TAB PO ONE (04:42)
--- NOTE | 2021-12-27 04:43 | Event Note ---
Date: 12/27/21 Medical screening examination note: 26-year-old gentleman presenting to the ER with a complaint of nonspecific chest pain. Initial EKG limited by motion artifact. Repeat EKG ordered. X-ray the chest ordered. Appropriate medications ordered. Resting comfortably in stretcher at this time, not currently tachycardic, tachypneic or hypoxic, does not appear to be in any acute distress. Detailed history and physical to be performed by oncoming ER provider Vital Signs 12/26/21 23:37 Temperature 98.3 F Pulse Rate 74 Respiratory 18 Rate Blood Pressure 99/69 O2 Sat by Pulse 99 Oximetry
--- NOTE | 2021-12-27 05:11 | XRay Report ---
CHEST 1 VIEW INDICATION / CLINICAL INFORMATION: chest pain. COMPARISON: Chest x-ray 04/17/2020 FINDINGS: Heart size appears within normal limits. Mediastinal contour demonstrates no significant abnormality. Pulmonary vasculature appears within normal limits. Lungs are clear. Bones and soft tissues demonstr ate no significant abnormalities. IMPRESSION: 1. No active cardiopulmonary disease. Signer Name: Michael Vivar II, MD Signed: 12/27/2021 5:06 AM Workstation Name: [id number]
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
[2021-12-27 06:59] VITALS: BP 104/58
--- NOTE | 2021-12-27 11:02 | Electrocardiograph Report ---
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
--- NOTE | 2021-12-27 11:02 | Electrocardiograph Report ---
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
== END 2021-12-27 06:55 | disposition home or self-care (01) ==
LOC: ED 23:24
DX: R07.9 Chest pain, unspecified (principal); K21.9 Gastro-esophageal reflux disease without esophagitis; I26.99 Other pulmonary embolism without acute cor pulmonale; F41.9 Anxiety disorder, unspecified; Z79.899 Other long term (current) drug therapy
CPT/HCPCS: 71045; 93005; 99283